=== PATIENT | male | born 1980 | race Caucasian/White ===

== ENCOUNTER 2018-04-26 16:57 | Emergency (ER) | payer SELFPAY, MEDICAID ==
[2018-04-26] MEDS: IBUPROFEN 800 MG TAB PO (18:36)
== END 2018-04-26 19:21 | disposition home or self-care (01) ==
LOC: FTE 16:57
DX: S76.012A Strain of muscle, fascia and tendon of left hip, initial encounter (principal); F17.210 Nicotine dependence, cigarettes, uncomplicated; V89.2XXA Person injured in unspecified motor-vehicle accident, traffic, initial encounter
CPT/HCPCS: 72170; 99283-25